=== PATIENT | female | born 2005 | race Caucasian/White ===

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

== ENCOUNTER 2024-01-02 04:11 | Emergency (ER) | payer MEDICAID ==
[~2024-01-02] VITALS: Ht 154.9 cm; Wt 50.0 kg
[~2024-01-02 04:11] MED LIST changes: +DOXY-447 PO; +LEVO500T91 PO; +PROM1SOL4 PO
[2024-01-02 04:47] VITALS: PULSE 107; RESP 18; O2SAT 97
[2024-01-02 05:29] LABS: Basophils # (auto) 0.1 10 ^3/uL (0-0.2); Basophils % (auto) 0.7 % (0.0-2.0); Eosinophils # (auto) 0.4 10 ^3/uL (0-0.8); Eosinophils % (auto) 2.6 % (0.0-7.0); Hemoglobin 11.6 g/dL (12.2-16.2); Lymphocytes # (auto) 2.5 10 ^3/uL (0.4-5.4); Lymphocytes % (auto) 18.1 % (10.0-50.0); Mean Corpuscular Hemoglobin 29.6 pg (28.0-32.0); Mean Corpuscular Volume 87.1 fL (80.0-100.0); Monocytes # (auto) 0.7 10 ^3/uL (0-1.3); Monocytes % (auto) 5.4 % (0.0-12.0); Neutrophils % (auto) 73.2 % (37.0-80.0); Red Blood Cells 3.91 10^6/uL (4.0-5.20); Red Cell Distribution Width 13.3 % (11.8-14.3); White Blood Cell 13.6 10^3/uL (4.4-10.8)
[2024-01-02 05:35] LABS: Urine Bacteria FEW /hpf (None Seen); Urine Blood 1+ /uL (Negative); Urine Clarity Clear (Clear); Urine Color Colorless (Yellow); Urine Protein, UAD Negative (Negative); Urine Specific Gravity 1.006 (1.001-1.035); Urine Urobilinogen Normal (Negative); Urine WBC 2 /hpf (0 - 5)
[2024-01-02 05:48] LABS: Albumin 4.4 g/dL (3.2-4.8); Alkaline Phosphatase 72 U/L (46-116); Anion Gap 8 (5-15); Aspartate Aminotransferase 17 U/L (13-40); BUN/Creatinine Ratio 12.3 (10.0-20.0); Bilirubin, Total 0.7 mg/dL (0.2-1.0); Blood Urea Nitrogen 9 mg/dL (9-23); Calcium 9.3 mg/dL (8.5-10.1); Carbon Dioxide 26 mmol/L (20-30); Chloride 104 mmol/L (98-107); Glucose 111 mg/dL (74-106); Potassium 3.5 mmol/L (3.5-5.1); Sodium 138 mmol/L (136-145); Total Protein 7.2 g/dL (5.7-8.2)
[2024-01-02 05:51] LABS: Amphetamine Screen, Urine Neg (NEGATIVE); Barbiturate Scree,Urine Neg (NEGATIVE); Benzodiazephine Screen, Urine Neg (NEGATIVE); Cannabinoid Screen, Urine Neg (NEGATIVE); Cocaine Screen, Urine Neg (NEGATIVE); Opiate Scree,Urine Neg (NEGATIVE); Phencyclidine Screen, Urine Neg (NEGATIVE)
[2024-01-02 05:56] LABS: Alanine Aminotransferase < 9 U/L (7-40)
[2024-01-02] MEDS: KETOROLAC TROMETH 30 MG/ML 1ML VIAL IV ONE (06:46)
[2024-01-02 07:45] VITALS: PULSE 103; RESP 18; O2SAT 97
[2024-01-02 08:00] VITALS: BP 104/60; PULSE 80; RESP 16; TEMP 97.7; O2SAT 95
[2024-01-02] MEDS ORDERED: NAPR-1334 PO (08:54)
[2024-01-02 09:21] LABS: COVID19 ANTIGEN SOFIA FIA NEGATIVE (NEGATIVE); Rapid Influenza A Negative (Negative); Rapid Influenza B Negative (Negative)
== END 2024-01-02 09:45 | disposition home or self-care (01) ==
LOC: EDBD 04:11 → ER 04:11
DX: M70.41 Prepatellar bursitis, right knee (principal); R07.89 Other chest pain; Z79.899 Other long term (current) drug therapy; Z79.2 Long term (current) use of antibiotics; Z88.0 Allergy status to penicillin; Z88.1 Allergy status to other antibiotic agents; Z20.822 Contact with and (suspected) exposure to COVID-19; Y93.89 Activity, other specified
CPT/HCPCS: 36415; 71045; 73562; 80053; 80307; 81001; 81025; 85025; 87426; 87804; 93005; 93971; 96374; 99285; J1885

== ENCOUNTER 2024-01-31 10:56 | Inpatient (IN) | payer MEDICAID ==
[~2024-01-31] VITALS: Ht 172.7 cm; Wt 52.8 kg
[~2024-01-31 10:56] MED LIST changes: -AZITTAB PO; +CLIN1CAP70 PO; -DOXY-447 PO; +PANT40TA2 PO; -PRED15SO33 PO; +PRED20TA2 PO; -PROM1SOL4 PO
[2024-01-31 16:13] LABS: Basophils # (auto) 0 10 ^3/uL (0-0.2); Eosinophils # (auto) 0 10 ^3/uL (0-0.8); Hemoglobin 9.8 g/dL (12.2-16.2); Lymphocytes # (auto) 0.9 10 ^3/uL (0.4-5.4); Mean Corpuscular Hgb Conc. 32.8 g/dL (32.0-36.0); Neutrophils # (auto) 14.2 10 ^3/uL (1.6-8.6)
[2024-01-31 16:15] LABS: Basophils % (auto) 0.1 % (0.0-2.0); Eosinophils % (auto) 0.1 % (0.0-7.0); Hematocrit 29.9 % (36.0-46.0); Mean Corpuscular Hemoglobin 31.7 pg (28.0-32.0); Mean Corpuscular Volume 96.4 fL (80.0-100.0); Monocytes # (auto) 0.3 10 ^3/uL (0-1.3); Monocytes % (auto) 1.8 % (0.0-12.0); Red Cell Distribution Width 23.4 % (11.8-14.3); White Blood Cell 15.4 10^3/uL (4.4-10.8)
[2024-01-31 16:32] LABS: Alanine Aminotransferase 10 U/L (7-40); Albumin 4.3 g/dL (3.2-4.8); Alkaline Phosphatase 78 U/L (46-116); Anion Gap 9 (5-15); Aspartate Aminotransferase 14 U/L (13-40); BUN/Creatinine Ratio 29.3 (10.0-20.0); Blood Urea Nitrogen 17 mg/dL (9-23); Calcium 9.1 mg/dL (8.7-10.4); Carbon Dioxide 23 mmol/L (20-30); Chloride 104 mmol/L (98-107); Glucose 109 mg/dL (74-106); Potassium 4.1 mmol/L (3.5-5.1); Sodium 136 mmol/L (136-145)
[2024-01-31 16:33] LABS: Bilirubin, Total 1.5 mg/dL (0.2-1.0); Total Protein 7.2 g/dL (5.7-8.2)
[2024-01-31 17:30] LABS: INR 0.98 (0.9-1.15); Prothrombin Time 10.3 sec (9.3-11.8)
[2024-01-31] MEDS ORDERED: DOCUSATE SOD 100 MG CAP PO PRN (22:30)
[2024-02-01] MEDS ORDERED: MORPHINE SULFATE INJ 2 MG/ml SYRG IV PRN
[2024-02-01] MEDS ORDERED: NITROGLYCERIN 0.4 MG SL TAB SL PRN
[2024-02-01] MEDS: SODIUM CHLORIDE 0.9% 1,000 ML IV SCH (00:12)
[2024-02-01] MEDS: levoFLOXacin 500MG 100 ML IV ONE (00:24)
[2024-02-01] MEDS: ENOXAPARIN SOD 40 MG/0.4 ML SYRINGE SC ONE (02:00)
[2024-02-01] MEDS: ACETAMINOPHEN 325 MG TAB PO PRN (02:22)
[2024-02-01 02:45] VITALS: PULSE 101; RESP 17; O2SAT 97
[2024-02-01 05:49] LABS: Basophils # (auto) 0 10 ^3/uL (0-0.2); Basophils % (auto) 0.1 % (0.0-2.0); Eosinophils # (auto) 0.1 10 ^3/uL (0-0.8); Eosinophils % (auto) 0.5 % (0.0-7.0); Hematocrit 22.5 % (36.0-46.0); Hemoglobin 7.2 g/dL (12.2-16.2); Lymphocytes # (auto) 2.8 10 ^3/uL (0.4-5.4); Lymphocytes % (auto) 18.1 % (10.0-50.0); Mean Corpuscular Hgb Conc. 31.9 g/dL (32.0-36.0); Mean Corpuscular Volume 97.1 fL (80.0-100.0); Monocytes % (auto) 6.2 % (0.0-12.0); Neutrophils # (auto) 11.6 10 ^3/uL (1.6-8.6); Neutrophils % (auto) 75.1 % (37.0-80.0); Nucleated Red Blood Cells % 0.1 %; Red Blood Cells 2.32 10^6/uL (4.0-5.20); Red Cell Distribution Width 23.5 % (11.8-14.3); White Blood Cell 15.4 10^3/uL (4.4-10.8)
[2024-02-01 06:35] LABS: Albumin 3.2 g/dL (3.2-4.8); Alkaline Phosphatase 47 U/L (46-116); Anion Gap 9 (5-15); Aspartate Aminotransferase 11 U/L (13-40); BUN/Creatinine Ratio 35.4 (10.0-20.0); Blood Urea Nitrogen 17 mg/dL (9-23); Calcium 8.1 mg/dL (8.5-10.1); Carbon Dioxide 20 mmol/L (20-30); Chloride 108 mmol/L (98-107); Glucose 90 mg/dL (74-106); Potassium 3.4 mmol/L (3.5-5.1); Sodium 137 mmol/L (136-145)
[2024-02-01 06:36] LABS: Bilirubin, Total 1.1 mg/dL (0.2-1.0)
[2024-02-01 06:51] LABS: Alanine Aminotransferase < 9 U/L (7-40)
[2024-02-01 08:13] VITALS: PULSE 91; RESP 13; O2SAT 92
[2024-02-01] MEDS: HYDROcodone-ACET 5/325MG TAB PO PRN (08:49)
[2024-02-01] MEDS: levoFLOXacin 500MG 100 ML IV SCH (10:01)
[2024-02-01] MEDS: PANTOPRAZOLE 40 MG/10 ML VIAL INJ IV SCH (10:01)
[2024-02-01] MEDS: predniSONE 20 MG TAB PO SCH (10:02)
[2024-02-01 11:48] LABS: Urine Bacteria FEW /hpf (None Seen); Urine Blood 2+ /uL (Negative); Urine Clarity Clear (Clear); Urine Color Colorless (Yellow); Urine Protein, UAD Negative (Negative); Urine Specific Gravity 1.007 (1.001-1.035); Urine Urobilinogen Normal (Negative); Urine WBC <1 /hpf (0 - 5); Urine pH 6.5 (5.0-9.0)
[2024-02-01 13:00] VITALS: BP 101/57; PULSE 92; RESP 20; TEMP 98.7; O2SAT 95
[2024-02-01] MEDS: ENOXAPARIN SOD 40 MG/0.4 ML SYRINGE SC SCH (13:20)
[2024-02-01 17:00] VITALS: BP 128/91; PULSE 83; RESP 20; TEMP 98.1; O2SAT 96
[2024-02-01 20:00] VITALS: BP 103/63; PULSE 94; PULSE 97; RESP 18; TEMP 98.2; O2SAT 94
[2024-02-01 21:00] VITALS: BP 103/63; PULSE 97; RESP 18; TEMP 98.2; O2SAT 97
[2024-02-02] VITALS (8 sets, daily range): BP systolic 91–130; BP diastolic 51–75; PULSE 65–98; RESP 16–18; TEMP 97.7–98.5; O2SAT 95–100
[2024-02-02 13:35] LABS: Basophils # (auto) 0 10 ^3/uL (0-0.2); Basophils % (auto) 0.2 % (0.0-2.0); Eosinophils # (auto) 0 10 ^3/uL (0-0.8); Eosinophils % (auto) 0.1 % (0.0-7.0); Hematocrit 27.6 % (36.0-46.0); Hemoglobin 8.7 g/dL (12.2-16.2); Lymphocytes % (auto) 5.6 % (10.0-50.0); Mean Corpuscular Hemoglobin 31.5 pg (28.0-32.0); Mean Corpuscular Hgb Conc. 31.5 g/dL (32.0-36.0); Monocytes # (auto) 0.6 10 ^3/uL (0-1.3); Monocytes % (auto) 3.1 % (0.0-12.0); Neutrophils # (auto) 16.5 10 ^3/uL (1.6-8.6); Red Blood Cells 2.76 10^6/uL (4.0-5.20); White Blood Cell 18.1 10^3/uL (4.4-10.8)
[2024-02-02 13:36] LABS: Red Cell Distribution Width 22.2 % (11.8-14.3)
[2024-02-02 13:52] LABS: Alanine Aminotransferase 10 U/L (7-40); Albumin 3.8 g/dL (3.2-4.8); Alkaline Phosphatase 59 U/L (46-116); Anion Gap 9 (5-15); Aspartate Aminotransferase 18 U/L (13-40); BUN/Creatinine Ratio 19.3 (10.0-20.0); Bilirubin, Total 1.5 mg/dL (0.2-1.0); Blood Urea Nitrogen 11 mg/dL (9-23); Calcium 8.9 mg/dL (8.5-10.1); Carbon Dioxide 21 mmol/L (20-30); Chloride 108 mmol/L (98-107); Glucose 103 mg/dL (74-106); Potassium 4.1 mmol/L (3.5-5.1); Sodium 138 mmol/L (136-145); Total Protein 5.8 g/dL (5.7-8.2)
[2024-02-03] VITALS (8 sets, daily range): BP systolic 87–93; BP diastolic 52–97; PULSE 70–90; RESP 17–22; TEMP 97.7–98.3; O2SAT 93–100
[2024-02-03] MEDS ORDERED: RITUXIMAB IV ONE ×2 (12:30→14:00)
[2024-02-03] MEDS ORDERED: SODIUM CHL 0.9% IV ONE ×2 (12:30→14:00)
[2024-02-04 05:00] VITALS: BP 97/58; PULSE 95; RESP 18; TEMP 97.5; O2SAT 98
[2024-02-04 08:00] VITALS: PULSE 101; PULSE 57
[2024-02-04] MEDS: ACETAMINOPHEN 500 MG TAB PO ONE (08:05)
[2024-02-04] MEDS: diphenhdrAMINE HCL 50 MG/1 ML VL IV ONE (08:06)
[2024-02-04] MEDS: RITUXIMAB IV ONE (08:27)
[2024-02-04] MEDS: SODIUM CHL 0.9% IV ONE (08:27)
[2024-02-04 09:00] VITALS: BP 92/55; PULSE 101; RESP 17; TEMP 97.6; O2SAT 96
[2024-02-04] MEDS: ONDANSETRON HCL 4 MG/2 ML VIAL IV PRN (09:48)
[2024-02-04 12:20] LABS: Alanine Aminotransferase 18 U/L (7-40); Alkaline Phosphatase 48 U/L (46-116); Anion Gap 7 (5-15); Aspartate Aminotransferase 27 U/L (13-40); BUN/Creatinine Ratio 20.5 (10.0-20.0); Basophils # (auto) 0 10 ^3/uL (0-0.2); Basophils % (auto) 0.3 % (0.0-2.0); Blood Urea Nitrogen 9 mg/dL (9-23); Calcium 9.3 mg/dL (8.5-10.1); Carbon Dioxide 23 mmol/L (20-30); Chloride 107 mmol/L (98-107); Eosinophils # (auto) 0 10 ^3/uL (0-0.8); Glucose 84 mg/dL (74-106); Sodium 137 mmol/L (136-145)
[2024-02-04 12:22] LABS: Bilirubin, Total 1.2 mg/dL (0.2-1.0); Eosinophils % (auto) 0.3 % (0.0-7.0); Hematocrit 29.2 % (36.0-46.0); Hemoglobin 9.1 g/dL (12.2-16.2); Lymphocytes % (auto) 16.3 % (10.0-50.0); Mean Corpuscular Hemoglobin 31.1 pg (28.0-32.0); Mean Corpuscular Hgb Conc. 31.3 g/dL (32.0-36.0); Mean Corpuscular Volume 99.2 fL (80.0-100.0); Monocytes # (auto) 0.5 10 ^3/uL (0-1.3); Monocytes % (auto) 4.3 % (0.0-12.0); Neutrophils # (auto) 9.6 10 ^3/uL (1.6-8.6); Neutrophils % (auto) 78.8 % (37.0-80.0); Nucleated Red Blood Cells % 0.4 %; Red Blood Cells 2.95 10^6/uL (4.0-5.20); Total Protein 6.9 g/dL (5.7-8.2); White Blood Cell 12.1 10^3/uL (4.4-10.8)
[2024-02-04 12:35] LABS: Red Cell Distribution Width 21.9 % (11.8-14.3)
[2024-02-04 13:00] VITALS: BP 107/51; PULSE 92; RESP 19; TEMP 97.4; O2SAT 95
[2024-02-04 13:50] VITALS: TEMP 36.4
== END 2024-02-04 18:10 | disposition home or self-care (01) | DRG 346 ==
LOC: ER 10:56 → TELE 23:51 → TELE-CENTR 02-01 12:22
PROVIDERS: ADMIT Nurse Practitioner Family; ATTEND Internal Medicine Pulmonary Disease
DX: M31.31 Wegener's granulomatosis with renal involvement (principal); J15.69 Pneumonia due to other Gram-negative bacteria; R04.89 Hemorrhage from other sites in respiratory passages; I82.611 Acute embolism and thrombosis of superficial veins of right upper extremity; D64.9 Anemia, unspecified; D72.829 Elevated white blood cell count, unspecified; Z88.0 Allergy status to penicillin; Z79.899 Other long term (current) drug therapy; J15.9 Unspecified bacterial pneumonia
CPT/HCPCS: 36415; 71045; 80053; 81001; 81025; 83735; 85025; 85610; 85730; 86850; 86900; 86901; 93005; 93971; C9113; G0378; J1956; J2405; J9312

== ENCOUNTER 2024-02-11 05:15 | Emergency (ER) | payer MEDICAID ==
[~2024-02-11] VITALS: Ht 172.7 cm; Wt 45.4 kg
[~2024-02-11 05:15] MED LIST changes: -CLIN1CAP70 PO; -LEVO500T91 PO
[2024-02-11 05:50] VITALS: BP 106/65; PULSE 105; RESP 26; O2SAT 99
== END 2024-02-11 08:37 | disposition home or self-care (01) ==
LOC: ER 05:15 → EDBD 05:15 → ER 07:12
DX: R10.84 Generalized abdominal pain (principal); Z79.899 Other long term (current) drug therapy; Z88.0 Allergy status to penicillin; Z88.1 Allergy status to other antibiotic agents; Z88.8 Allergy status to other drugs, medicaments and biological substances; Z91.018 Allergy to other foods